=== PATIENT | female | born 1960 | race Caucasian/White ===

== ENCOUNTER → 2018-02-11 15:00 | Outpatient (CLI) | payer OTHER, SELFPAY | DX: Z23 Encounter for immunization (principal) | CPT/HCPCS: 90471; 90686 ==

== ENCOUNTER 2018-05-05 06:00 | Outpatient (RCR) | payer OTHER, SELFPAY ==
--- NOTE | 2018-04-25 11:27 | PT.OIE ---
Current Diagnoses Chronic pain syndrome (04/22/18) Unilateral primary osteoarthritis, left knee (04/22/18) Low back pain (04/22/18) Past Surgical History Status post hysterectomy with oophorectomy Provider Visit Care Team Role Provider Type Lidia Dominguez PA-C Attending Provider Advanced Protocol Manager Primary Care Provider Specialty: Internal Medicine Address: [address] [place] [address], [facility] Email: Physical Therapy Initial Evaluation PT-OP-A Visit Information Start: 04/22/18 08:15 Freq: Status: Active Protocol: Document 04/22/18 08:15 SAK (Rec: 04/22/18 16:58 SAK [id number]) Out-Patient Physical Therapy Visit Information Visit Information Visit Type Initial Evaluation Visit Start Time 08:15 Visit Stop Time 09:10 Total Visit Minutes 55 Visit Number 1 Number of CUSTOMER CARE MANAGER Visits 0 Evaluation Information Evaluation Date 04/22/18 PT-OP-B Current Condition Start: 04/22/18 08:15 Freq: Status: Active Protocol: Document 04/22/18 08:15 SAK (Rec: 04/25/18 11:26 [facility] [id number]) Current Condition History of Current Condition Onset Date September 2017 Current Complaints severe left knee pain History of Current Condition Reports she went hiking with family on [place] in September, doesn't remember any injury, but had onset of pain and swelling the next day. Icing, medications, injection not helpful. Had MRI March 2018 which showed likely medial meniscus toot tear, and edema left femoral condyle consistent with subchondral stress fracture. 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 Patient currently using single crutch on left, trying to ice and rest her leg as able, but has seen no improvement. Now referred for physical therapy including aquatic PT. Patient has a history of fibromyalgia, LBP, arthritis, depression, HESS, hysterectomy. Treatment Goals Patient/Caregiver Goals Minimize pain and return to active lifestyle, be able to work without pain. 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 Therapy/Recovery PT-OP-C Subjective Start: 04/22/18 08:15 Freq: Status: Active Protocol: Document 04/22/18 08:15 [facility] (Rec: 04/25/18 11:26 [facility] [id number]) Patient Questionnaires Lower Extremity Functional Scale LEFS Score 58 LEFS Impairment 40 to 59% Impaired (Score 32- 47) OP-PT Pain Assessment Pain Assessment Grid Paper Pain Assessment Grid Completed Yes Location left knee Pain Location Details medial Intensity 8 Scale Used Numeric (1 - 10) Description Aching Burning Pressure Sharp Tender Tightness Description- Other worst with weight-bearing Frequency Frequent Pain Aggravating Factors Activity Exercise Standing Walking Bending Pain Alleviating Factors Cold Lying Supine Home Pain Medication Use Pain Medications Used Yes Pain Behaviors Pain Behaviors Facial Grimacing Wincing PT-OP-E Functional Tests Start: 04/22/18 08:15 Freq: Status: Active Protocol: Document 04/22/18 08:15 [facility] (Rec: 04/25/18 11:26 [facility] [id number]) Functional Tests Five Times Sit to Stand Test Score unable Comments painful Squat Test Score unable PT-OP-F Manual Assessment Start: 04/22/18 08:15 Freq: Status: Active Protocol: Document 04/22/18 08:15 [facility] (Rec: 04/25/18 11:26 [facility] [id number]) Manual Assessments Joint Mobility Assessment Joint Mobility Assessment Unable to perform joint mobilizations due to high pain level PT-OP-G Mobility & Gait Start: 04/22/18 08:15 Freq: Status: Active Protocol: Document 04/22/18 08:15 [facility] (Rec: 04/25/18 11:26 [facility] [id number]) OP Mobility Evaluation Functional Movements Squats unable; painful Other Functional Movements sit to stand painful with minimal weight on left LE OP Gait Assessment Gait Gait Assistance Required: Independent Assistive Devices Assistive Device Axillary Crutches Orthotic/Prosthetic Devices or Brace: No Gait Deviations General Gait Pattern Antalgic Factors Limiting Gait Function Factors Limiting Gait Function Pain Comments Gait Comments Poor fit of crutch, doesn't provide adequate off-loading of left LE for gait. Stair Climbing Evaluation Comments Stair Climbing Comments Not done today due to severity of pain; patient reports step -to pattern PT-OP-H Neuro Start: 04/22/18 08:15 Freq: Status: Active Protocol: Document 04/22/18 08:15 [facility] (Rec: 04/25/18 11:26 [facility] [id number]) Sensation Evaluation Gross Sensation Gross Sensation WNL Comments Summary Comments denies N/T PT-OP-J Posture/Palpation/Skin Start: 04/22/18 08:15 Freq: Status: Active Protocol: Document 04/22/18 08:15 [facility] (Rec: 04/25/18 11:26 [facility] [id number]) Palpation Assessment Location medial left knee Palpation Findings Edema Tenderness PT-OP-K Range of Motion Start: 04/22/18 08:15 Freq: Status: Active Protocol: Document 04/22/18 08:15 [facility] (Rec: 04/25/18 11:26 [facility] [id number]) Hip Goniometric Range of Motion Hip ROM Limitations Comments WFL mary Knee Goniometric Range of Motion Knee Measured in Degrees Left Flexion Active (degrees) 100 Extension Active (degrees) 0 Right Knee ROM WFL Yes Knee ROM Limitations Knee ROM Limitations Pain Swelling Ankle and Foot Goniometric Range of Motion Ankle and Foot ROM Limitations Comments WFL mary PT-OP-M Strength Start: 04/22/18 08:15 Freq: Status: Active Protocol: Document 04/22/18 08:15 [facility] (Rec: 04/25/18 11:26 [facility] [id number]) Knee Strength Knee Manual Muscle Testing Left Flexion (S2) 4- Good- Extension (L3) 4- Good- Reason Not Measured Pain Right Flexion (S2) 5 Normal Extension (L3) 5 Normal Ankle/Foot Strength Ankle and Foot Manual Muscle Testing Left Dorsiflexion (L4) 4+ Good+ Plantarflexion (S1) 4+ Good+ Right Dorsiflexion (L4) 4+ Good+ Plantarflexion (S1) 4+ Good+ PT-OP-Q Treatments Start: 04/22/18 08:15 Freq: Status: Active Protocol: Document 04/22/18 08:15 [facility] (Rec: 04/22/18 16:58 [facility] [id number]) Gait Training Gait Activity Gait with FWW Device Used FWW Level of Assistance verbal cues Surface level Distance/Duration 60' Treatment Focus decreased weight-bearing and pain left knee with use of walker vs crutch Comments Patient encouraged to use FWW instead of crutch for better off-loading and decreased pain of her left knee. Manual Therapy Treatment Taping left knee Body Location medial left knee Treatment Focus edema reduction Type of Tape Kinesio Tape Skin Inspection intact Comments for edema reduction-2 fan strips Self-Care/Home Management Treatment Education Patient Education Pain Management PT-OP-R Modalities Start: 04/22/18 08:15 Freq: Status: Active Protocol: Document 04/22/18 08:15 [facility] (Rec: 04/25/18 10:55 [facility] [id number]) Electric Stimulation Electric Stimulation left knee Duration (Minutes) 15 Target/Sweep Sweep Patient Position Hooklying Combined With Heat/Cold Cold Pack Ultrasound Therapy Treatment left medial knee Treatment Duration (minutes) 8 Patient Position Hooklying Coupling Medium Ultrasound Gel Frequency Setting (mHz) 1 Duty Cycle 50% Intensity Setting (w/cm2) 1.2 PT-OP-T Assessment and Plan Start: 04/22/18 08:15 Freq: Status: Active Protocol: Document 04/22/18 08:15 [facility] (Rec: 04/25/18 11:26 [facility] [id number]) Physical Therapy Assessment Rehab Potential Rehabilitation Potential Good Evaluation Complexity Number of Personal Factors/Comorbidities 1-2 Number of Body Systems Impaired 3 Clinical Presentation at Evaluation Evolving Impairments Impairments Activity Tolerance Gait Pain Strength Goals weakness Impairment left knee weakness Short Term Goal (STG) Patient will be able to tolerate a gentle HEP for purposes of left knee strengthening STG Duration 6 wks Long-Term Goal (LTG) Patient will have 5/5 strength in her left knee activity tolerance Impairment pain with ADL's, work Short Term Goal (STG) Patient will be able to perform all ADL's without pain STG Duration 6 wks Long-Term Goal (LTG) Patient will be able to complete a full day's work without an increase in pain LTG Duration 3 months Gait Impairment antalgic gait Short Term Goal (STG) Patient able to ambulate with appropriate assistive device without a limp on level surfaces STG Duration 6 wks Principal Gifts Officer Goal (LTG) Patient able to ambulate without assistive device without a limp on all surfaces LTG Duration 3 months Pain Impairment function-limiting left knee pain Short Term Goal (STG) Decrease pain to no greater than 4/10 STG Duration 6 wks Long-Term Goal (LTG) Decrease pain to no greater than 1/10 LTG Duration 3 months Assessment Summary Assessment Patient presents with function -limiting left knee pain with MRI results showing femoral condyle edema indicative of possible subchondral stress fracture, and possible medial meniscus root tear. Feel she would benefit highly from PT for pain management, gait training, and strengthening to help her return to her previously very active lifestyle. She is currently ambulating with a single crutch which is not adequate for offloading her knee as she is limping significantly. Feel she will benefit highly from aquatic PT for bouyancy- supported exercise and gait training as well as land-based PT for modalities, taping, possibly fitting with knee brace, and gentle ther ex. Physical Therapy Plan Frequency and Duration Frequency of Treatment 2x/Week Duration of Treatment 3 months Plan of Care Start Date 04/22/18 Plan of Care End Date 07/21/18 Therapeutic Interventions Therapeutic Interventions Aquatic Therapy Gait Training Home Exercise Program Manual Therapy Neuromuscular Re-education Patient/Caregiver Education Self-Care/Home Management Taping Therapeutic Activities Therapeutic Exercises Modalities Cold Pack/Ice Massage Electric Stimulation Iontophoresis Ultrasound Next Visit Focus/Plan Next Note Type Treatment Note Next Visit Plan Initiate aquatic therapy. Instruct in gentle ther ex for HEP.
--- NOTE | 2018-04-25 11:27 | PT.OPPOC ---
Current Diagnoses Chronic pain syndrome (04/22/18) Unilateral primary osteoarthritis, left knee (04/22/18) Low back pain (04/22/18) Provider Visit Care Team Role Provider Type Lidia Dominguez PA-C Attending Provider Advanced Tree Puller Primary Care Provider Specialty: Internal Medicine Address: [address] [place] [address], [id number] Email: Plan Of Care PT-OP-T Assessment and Plan Start: 04/22/18 08:15 Freq: Status: Active Protocol: Document 04/22/18 08:15 SAK (Rec: 04/25/18 11:26 SAK [id number]) Physical Therapy Assessment Rehab Potential Rehabilitation Potential Good Evaluation Complexity Number of Personal Factors/Comorbidities 1-2 Number of Body Systems Impaired 3 Clinical Presentation at Evaluation Evolving Impairments Impairments Activity Tolerance Gait Pain Strength Goals weakness Impairment left knee weakness Short Term Goal (STG) Patient will be able to tolerate a gentle HEP for purposes of left knee strengthening STG Duration 6 wks Placement Director Goal (LTG) Patient will have 5/5 strength in her left knee activity tolerance Impairment pain with ADL's, work Short Term Goal (STG) Patient will be able to perform all ADL's without pain STG Duration 6 wks Penitentiary Goal (LTG) Patient will be able to complete a full day's work without an increase in pain LTG Duration 3 months Gait Impairment antalgic gait Short Term Goal (STG) Patient able to ambulate with appropriate assistive device without a limp on level surfaces STG Duration 6 wks Placement Director Goal (LTG) Patient able to ambulate without assistive device without a limp on all surfaces LTG Duration 3 months Pain Impairment function-limiting left knee pain Short Term Goal (STG) Decrease pain to no greater than 4/10 STG Duration 6 wks Placement Director Goal (LTG) Decrease pain to no greater than 1/10 LTG Duration 3 months Assessment Summary Assessment Patient presents with function -limiting left knee pain with MRI results showing femoral condyle edema indicative of possible subchondral stress fracture, and possible medial meniscus root tear. Feel she would benefit highly from PT for pain management, gait training, and strengthening to help her return to her previously very active lifestyle. She is currently ambulating with a single crutch which is not adequate for offloading her knee as she is limping significantly. Feel she will benefit highly from aquatic PT for bouyancy- supported exercise and gait training as well as land-based PT for modalities, taping, possibly fitting with knee brace, and gentle ther ex. Physical Therapy Plan Frequency and Duration Frequency of Treatment 2x/Week Duration of Treatment 3 months Plan of Care Start Date 04/22/18 Plan of Care End Date 07/21/18 Therapeutic Interventions Therapeutic Interventions Aquatic Therapy Gait Training Home Exercise Program Manual Therapy Neuromuscular Re-education Patient/Caregiver Education Self-Care/Home Management Taping Therapeutic Activities Therapeutic Exercises Modalities Cold Pack/Ice Massage Electric Stimulation Iontophoresis Ultrasound Next Visit Focus/Plan Next Note Type Treatment Note Next Visit Plan Initiate aquatic therapy. Instruct in gentle ther ex for HEP. Plan of Care Dates Plan of Care Start Date 04/22/18 Plan of Care End Date 07/21/18 Please Sign and Return: I have reviewed this Plan of Care and certify that the skilled therapy services above are required to meet the patient?s needs. Physician Signature Date Printed Name and Credentials Clinical Instructor Signature Printed Name and Credentials
--- NOTE | 2018-04-28 16:18 | PT.OTN ---
Current Diagnoses Chronic pain syndrome (04/28/18) Unilateral primary osteoarthritis, left knee (04/28/18) Low back pain (04/28/18) Physical Therapy Treatment Note PT-OP-A Visit Information Start: 04/22/18 08:15 Freq: Status: Active Protocol: Document 04/28/18 06:12 SAK (Rec: 04/28/18 15:14 [facility] [id number]) Out-Patient Physical Therapy Visit Information Visit Information Visit Type Treatment Note Visit Start Time 06:00 Visit Stop Time 06:45 Total Visit Minutes 45 Visit Number 2 Number of INCIDENT RESPONSE CONSULTANT Visits 0 Evaluation Information Evaluation Date 04/22/18 PT-OP-B Current Condition Start: 04/22/18 08:15 Freq: Status: Active Protocol: Document 04/22/18 08:15 SAK (Rec: 04/25/18 11:26 [facility] [id number]) Current Condition History of Current Condition Onset Date September 2017 Current Complaints severe left knee pain History of Current Condition Reports she went hiking with family on [place] in September, doesn't remember any injury, but had onset of pain and swelling the next day. Icing, medications, injection not helpful. Had MRI March 2018 which showed likely medial meniscus toot tear, and edema left femoral condyle consistent with subchondral stress fracture. 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 Patient currently using single crutch on left, trying to ice and rest her leg as able, but has seen no improvement. Now referred for physical therapy including aquatic PT. Patient has a history of fibromyalgia, LBP, arthritis, depression, HESS, hysterectomy. Treatment Goals Patient/Caregiver Goals Minimize pain and return to active lifestyle, be able to work without pain. 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 Therapy/Recovery PT-OP-C Subjective Start: 04/22/18 08:15 Freq: Status: Active Protocol: Document 04/28/18 06:12 SAK (Rec: 04/28/18 15:14 [facility] [id number]) OP-PT Subjective Patient Comments Patient Comments Reports she felt better after ultrasound. Liked kinesiotape . Hasn't yet received order for knee brace from physician. Reports excited to try aquatic therapy. PT-OP-E Functional Tests Start: 04/22/18 08:15 Freq: Status: Active Protocol: Document 04/22/18 08:15 SAK (Rec: 04/25/18 11:26 [facility] [id number]) Functional Tests Five Times Sit to Stand Test Score unable Comments painful Squat Test Score unable PT-OP-F Manual Assessment Start: 04/22/18 08:15 Freq: Status: Active Protocol: Document 04/22/18 08:15 SAK (Rec: 04/25/18 11:26 [facility] [id number]) Manual Assessments Joint Mobility Assessment Joint Mobility Assessment Unable to perform joint mobilizations due to high pain level PT-OP-G Mobility & Gait Start: 04/22/18 08:15 Freq: Status: Active Protocol: Document 04/22/18 08:15 SAK (Rec: 04/25/18 11:26 [facility] [id number]) OP Mobility Evaluation Functional Movements Squats unable; painful Other Functional Movements sit to stand painful with minimal weight on left LE OP Gait Assessment Gait Gait Assistance Required: Independent Assistive Devices Assistive Device Axillary Crutches Orthotic/Prosthetic Devices or Brace: No Gait Deviations General Gait Pattern Antalgic Factors Limiting Gait Function Factors Limiting Gait Function Pain Comments Gait Comments Poor fit of crutch, doesn't provide adequate off-loading of left LE for gait. Stair Climbing Evaluation Comments Stair Climbing Comments Not done today due to severity of pain; patient reports step -to pattern PT-OP-H Neuro Start: 04/22/18 08:15 Freq: Status: Active Protocol: Document 04/22/18 08:15 SAK (Rec: 04/25/18 11:26 [facility] [id number]) Sensation Evaluation Gross Sensation Gross Sensation WNL Comments Summary Comments denies N/T PT-OP-J Posture/Palpation/Skin Start: 04/22/18 08:15 Freq: Status: Active Protocol: Document 04/22/18 08:15 SAK (Rec: 04/25/18 11:26 [facility] [id number]) Palpation Assessment Location medial left knee Palpation Findings Edema Tenderness PT-OP-K Range of Motion Start: 04/22/18 08:15 Freq: Status: Active Protocol: Document 04/22/18 08:15 [facility] (Rec: 04/25/18 11:26 [facility] [id number]) Hip Goniometric Range of Motion Hip ROM Limitations Comments WFL mary Knee Goniometric Range of Motion Knee Measured in Degrees Left Flexion Active (degrees) 100 Extension Active (degrees) 0 Right Knee ROM WFL Yes Knee ROM Limitations Knee ROM Limitations Pain Swelling Ankle and Foot Goniometric Range of Motion Ankle and Foot ROM Limitations Comments WFL mary PT-OP-M Strength Start: 04/22/18 08:15 Freq: Status: Active Protocol: Document 04/22/18 08:15 SAK (Rec: 04/25/18 11:26 [facility] [id number]) Knee Strength Knee Manual Muscle Testing Left Flexion (S2) 4- Good- Extension (L3) 4- Good- Reason Not Measured Pain Right Flexion (S2) 5 Normal Extension (L3) 5 Normal Ankle/Foot Strength Ankle and Foot Manual Muscle Testing Left Dorsiflexion (L4) 4+ Good+ Plantarflexion (S1) 4+ Good+ Right Dorsiflexion (L4) 4+ Good+ Plantarflexion (S1) 4+ Good+ PT-OP-Q Treatments Start: 04/22/18 08:15 Freq: Status: Active Protocol: Document 04/22/18 08:15 [facility] (Rec: 04/22/18 16:58 [facility] [id number]) Gait Training Gait Activity Gait with FWW Device Used FWW Level of Assistance verbal cues Surface level Distance/Duration 60' Treatment Focus decreased weight-bearing and pain left knee with use of walker vs crutch Comments Patient encouraged to use FWW instead of crutch for better off-loading and decreased pain of her left knee. Manual Therapy Treatment Taping left knee Body Location medial left knee Treatment Focus edema reduction Type of Tape Kinesio Tape Skin Inspection intact Comments for edema reduction-2 fan strips Self-Care/Home Management Treatment Education Patient Education Pain Management PT-OP-R Modalities Start: 04/22/18 08:15 Freq: Status: Active Protocol: Document 04/22/18 08:15 [facility] (Rec: 04/25/18 10:55 [facility] [id number]) Electric Stimulation Electric Stimulation left knee Duration (Minutes) 15 Target/Sweep Sweep Patient Position Hooklying Combined With Heat/Cold Cold Pack Ultrasound Therapy Treatment left medial knee Treatment Duration (minutes) 8 Patient Position Hooklying Coupling Medium Ultrasound Gel Frequency Setting (mHz) 1 Duty Cycle 50% Intensity Setting (w/cm2) 1.2 PT-OP-S Aquatic Treatment Start: 04/22/18 08:15 Freq: Status: Active Protocol: Document 04/28/18 06:00 [facility] (Rec: 04/28/18 16:18 [facility] [id number]) Aquatics Treatment Pool Entry/Exit Pool Entry/Exit Method Stairs Assistance Standby Assistance Verbal Cues Water Walking fwd,bck, , july Water Level Chest Level Level of Assistance Standby Assistance Verbal Cues Lower Extremity Exercises hip flex/ext Body Position Standing Water Level Chest Level Reps/Duration 10x hip ab/ad Body Position Standing Water Level Chest Level Reps/Duration 10x knee flex/ext Body Position Standing Water Level Chest Level Reps/Duration 10x squats Body Position Standing Water Level Chest Level Reps/Duration 10x heel raises Body Position Standing Water Level Chest Level Reps/Duration 10x Lower Extremity Stretches HS Body Position Standing Water Level Chest Level Equipment Small Noodle [place] Activities [place] Activities Bicycle [place] Running Equipment small noodle Duration 12 min Comments also deep water hang for joint decompression: 1'x 2 PT-OP-T Assessment and Plan Start: 04/22/18 08:15 Freq: Status: Active Protocol: Document 04/28/18 06:02 [facility] (Rec: 04/28/18 16:07 [facility] [id number]) Physical Therapy Assessment Goals weakness Impairment left knee weakness Short Term Goal (STG) Patient will be able to tolerate a gentle HEP for purposes of left knee strengthening STG Duration 6 wks Lawn And Garden Technician Goal (LTG) Patient will have 5/5 strength in her left knee activity tolerance Impairment pain with ADL's, work Short Term Goal (STG) Patient will be able to perform all ADL's without pain STG Duration 6 wks Lawn And Garden Technician Goal (LTG) Patient will be able to complete a full day's work without an increase in pain LTG Duration 3 months Gait Impairment antalgic gait Short Term Goal (STG) Patient able to ambulate with appropriate assistive device without a limp on level surfaces STG Duration 6 wks Long-Term Goal (LTG) Patient able to ambulate without assistive device without a limp on all surfaces LTG Duration 3 months Pain Impairment function-limiting left knee pain Short Term Goal (STG) Decrease pain to no greater than 4/10 STG Duration 6 wks Long-Term Goal (LTG) Decrease pain to no greater than 1/10 LTG Duration 3 months Physical Therapy Plan Frequency and Duration Frequency of Treatment 2x/Week Duration of Treatment 3 months Plan of Care Start Date 04/22/18 Plan of Care End Date 07/21/18 Therapeutic Interventions Therapeutic Interventions Aquatic Therapy Gait Training Home Exercise Program Manual Therapy Neuromuscular Re-education Patient/Caregiver Education Self-Care/Home Management Taping Therapeutic Activities Therapeutic Exercises Modalities Cold Pack/Ice Massage Electric Stimulation Iontophoresis Ultrasound Next Visit Focus/Plan Next Note Type Treatment Note Next Visit Plan Continue combination land and aquatic PT. Fit with hinged knee brace, progress aquatic ex as tolerated, land-based PT for modalities, manual therapy, and gentle ther ex as tolerated.
--- NOTE | 2018-05-05 10:24 | PT.OTN ---
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 in September, doesn't remember any injury, but had onset of pain and swelling the next day. Icing, medications, injection not helpful. Had MRI March 2018 which showed likely medial meniscus toot tear, and edema left femoral condyle consistent with subchondral stress fracture. 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 Patient currently using single crutch on left, trying to ice and rest her leg as able, but has seen no improvement. Now referred for physical therapy including aquatic PT. Patient has a history of fibromyalgia, LBP, arthritis, depression, HESS, hysterectomy. Treatment Goals Patient/Caregiver Goals Minimize pain and return to active lifestyle, be able to work without pain. 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 Therapy/Recovery PT-OP-C Subjective Start: 04/22/18 08:15 Freq: Status: Active Protocol: Document 05/05/18 06:00 SAK (Rec: 05/05/18 10:24 [facility] [id number]) OP-PT Subjective Patient Comments Patient Comments Reports initially a little sore after aquatic PT appointment, then has had significant decrease in pain; states walking with minimal limp not using crutch. Very pleased. Has not been able to get into the pool on her own yet due to busy work schedule PT-OP-E Functional Tests Start: 04/22/18 08:15 Freq: Status: Active Protocol: Document 04/22/18 08:15 [facility] (Rec: 04/25/18 11:26 [facility] [id number]) Functional Tests Five Times Sit to Stand Test Score unable Comments painful Squat Test Score unable PT-OP-F Manual Assessment Start: 04/22/18 08:15 Freq: Status: Active Protocol: Document 04/22/18 08:15 [facility] (Rec: 04/25/18 11:26 [facility] [id number]) Manual Assessments Joint Mobility Assessment Joint Mobility Assessment Unable to perform joint mobilizations due to high pain level PT-OP-G Mobility & Gait Start: 04/22/18 08:15 Freq: Status: Active Protocol: Document 04/22/18 08:15 [facility] (Rec: 04/25/18 11:26 [facility] [id number]) OP Mobility Evaluation Functional Movements Squats unable; painful Other Functional Movements sit to stand painful with minimal weight on left LE OP Gait Assessment Gait Gait Assistance Required: Independent Assistive Devices Assistive Device Axillary Crutches Orthotic/Prosthetic Devices or Brace: No Gait Deviations General Gait Pattern Antalgic Factors Limiting Gait Function Factors Limiting Gait Function Pain Comments Gait Comments Poor fit of crutch, doesn't provide adequate off-loading of left LE for gait. Stair Climbing Evaluation Comments Stair Climbing Comments Not done today due to severity of pain; patient reports step -to pattern PT-OP-H Neuro Start: 04/22/18 08:15 Freq: Status: Active Protocol: Document 04/22/18 08:15 [facility] (Rec: 04/25/18 11:26 [facility] [id number]) Sensation Evaluation Gross Sensation Gross Sensation WNL Comments Summary Comments denies N/T PT-OP-J Posture/Palpation/Skin Start: 04/22/18 08:15 Freq: Status: Active Protocol: Document 04/22/18 08:15 [facility] (Rec: 04/25/18 11:26 [facility] [id number]) Palpation Assessment Location medial left knee Palpation Findings Edema Tenderness PT-OP-K Range of Motion Start: 04/22/18 08:15 Freq: Status: Active Protocol: Document 04/22/18 08:15 [facility] (Rec: 04/25/18 11:26 [facility] [id number]) Hip Goniometric Range of Motion Hip ROM Limitations Comments WFL mary Knee Goniometric Range of Motion Knee Measured in Degrees Left Flexion Active (degrees) 100 Extension Active (degrees) 0 Right Knee ROM WFL Yes Knee ROM Limitations Knee ROM Limitations Pain Swelling Ankle and Foot Goniometric Range of Motion Ankle and Foot ROM Limitations Comments WFL mary PT-OP-M Strength Start: 04/22/18 08:15 Freq: Status: Active Protocol: Document 04/22/18 08:15 [facility] (Rec: 04/25/18 11:26 [facility] [id number]) Knee Strength Knee Manual Muscle Testing Left Flexion (S2) 4- Good- Extension (L3) 4- Good- Reason Not Measured Pain Right Flexion (S2) 5 Normal Extension (L3) 5 Normal Ankle/Foot Strength Ankle and Foot Manual Muscle Testing Left Dorsiflexion (L4) 4+ Good+ Plantarflexion (S1) 4+ Good+ Right Dorsiflexion (L4) 4+ Good+ Plantarflexion (S1) 4+ Good+ PT-OP-Q Treatments Start: 04/22/18 08:15 Freq: Status: Active Protocol: Document 04/22/18 08:15 [facility] (Rec: 04/22/18 16:58 [facility] [id number]) Gait Training Gait Activity Gait with FWW Device Used FWW Level of Assistance verbal cues Surface level Distance/Duration 60' Treatment Focus decreased weight-bearing and pain left knee with use of walker vs crutch Comments Patient encouraged to use FWW instead of crutch for better off-loading and decreased pain of her left knee. Manual Therapy Treatment Taping left knee Body Location medial left knee Treatment Focus edema reduction Type of Tape Kinesio Tape Skin Inspection intact Comments for edema reduction-2 fan strips Self-Care/Home Management Treatment Education Patient Education Pain Management PT-OP-R Modalities Start: 04/22/18 08:15 Freq: Status: Active Protocol: Document 04/22/18 08:15 [facility] (Rec: 04/25/18 10:55 [facility] [id number]) Electric Stimulation Electric Stimulation left knee Duration (Minutes) 15 Target/Sweep Sweep Patient Position Hooklying Combined With Heat/Cold Cold Pack Ultrasound Therapy Treatment left medial knee Treatment Duration (minutes) 8 Patient Position Hooklying Coupling Medium Ultrasound Gel Frequency Setting (mHz) 1 Duty Cycle 50% Intensity Setting (w/cm2) 1.2 PT-OP-S Aquatic Treatment Start: 04/22/18 08:15 Freq: Status: Active Protocol: Document 05/05/18 06:00 [facility] (Rec: 05/05/18 10:24 [facility] [id number]) Aquatics Treatment Pool Entry/Exit Pool Entry/Exit Method Stairs Assistance Standby Assistance Verbal Cues Water Walking [place] July Water Level Chest Level Level of Assistance Standby Assistance Verbal Cues fwd,bck, side, july Water Level Chest Level Level of Assistance Standby Assistance Verbal Cues Lower Extremity Exercises step-ups Body Position Standing Water Level Chest Level Reps/Duration 10x hip flex/ext Body Position Standing Water Level Chest Level Reps/Duration 10x hip ab/ad Body Position Standing Water Level Chest Level Reps/Duration 10x knee flex/ext Body Position Standing Water Level Chest Level Reps/Duration 10x squats Body Position Standing Water Level Chest Level Reps/Duration 10x heel raises Body Position Standing Water Level Chest Level Reps/Duration 10x Lower Extremity Stretches HC Body Position Standing Water Level Chest Level Comments Pool wall HS Body Position Standing Water Level Chest Level Equipment Small Noodle [place] Activities [place] Activities Bicycle [place] Running Equipment small noodle Duration 12 min Comments also deep water hang for joint decompression: 1'x 2 PT-OP-T Assessment and Plan Start: 04/22/18 08:15 Freq: Status: Active Protocol: Document 05/05/18 06:00 [facility] (Rec: 05/05/18 10:24 [facility] [id number]) Physical Therapy Assessment Goals weakness Impairment left knee weakness Short Term Goal (STG) Patient will be able to tolerate a gentle HEP for purposes of left knee strengthening STG Duration 6 wks Retirement Goal (LTG) Patient will have 5/5 strength in her left knee activity tolerance Impairment pain with ADL's, work Short Term Goal (STG) Patient will be able to perform all ADL's without pain STG Duration 6 wks Retirement Goal (LTG) Patient will be able to complete a full day's work without an increase in pain LTG Duration 3 months Gait Impairment antalgic gait Short Term Goal (STG) Patient able to ambulate with appropriate assistive device without a limp on level surfaces STG Duration 6 wks Retirement Goal (LTG) Patient able to ambulate without assistive device without a limp on all surfaces LTG Duration 3 months Pain Impairment function-limiting left knee pain Short Term Goal (STG) Decrease pain to no greater than 4/10 STG Duration 6 wks Rn Radiation Goal (LTG) Decrease pain to no greater than 1/10 LTG Duration 3 months Assessment Summary Assessment Reported some pinching sensation in her knee toward end of session today. Encouraged icing and remember her response to aquatic PT last session. Physical Therapy Plan Frequency and Duration Frequency of Treatment 2x/Week Duration of Treatment 3 months Plan of Care Start Date 04/22/18 Plan of Care End Date 07/21/18 Therapeutic Interventions Therapeutic Interventions Aquatic Therapy Gait Training Home Exercise Program Manual Therapy Neuromuscular Re-education Patient/Caregiver Education Self-Care/Home Management Taping Therapeutic Activities Therapeutic Exercises Modalities Cold Pack/Ice Massage Electric Stimulation Iontophoresis Ultrasound Next Visit Focus/Plan Next Note Type Treatment Note Next Visit Plan Continue combination land and aquatic PT per POC to decrease pain and return patient to her prior level of function
--- NOTE | 2018-06-18 08:43 | PT.OPDS ---
Current Diagnoses Chronic pain syndrome (05/05/18) Unilateral primary osteoarthritis, left knee (05/05/18) Low back pain (05/05/18) Provider Visit Care Team Role Provider Type Lidia Dominguez PA-C Attending Provider Advanced Client Resolution Specialist Primary Care Provider Specialty: Internal Medicine Address: [address] [place] [address], [phone] Email: Visit Number Visit Number 3 Discharge Summary PT-OP-B Current Condition Start: 04/22/18 08:15 Freq: Status: Active Protocol: Document 04/22/18 08:15 SAK (Rec: 04/25/18 11:26 SAK [id number]) Current Condition History of Current Condition Onset Date September 2017 Current Complaints severe left knee pain History of Current Condition Reports she [place], doesn't remember any injury, but had onset of pain and swelling the next day. Icing, medications, injection not helpful. Had MRI March 2018 which showed likely medial meniscus toot tear, and edema left femoral condyle consistent with subchondral stress fracture. 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 Patient currently using single crutch on left, trying to ice and rest her leg as able, but has seen no improvement. Now referred for physical therapy including aquatic PT. Patient has a history of fibromyalgia, LBP, arthritis, depression, HESS, hysterectomy. Treatment Goals Patient/Caregiver Goals Minimize pain and return to active lifestyle, be able to work without pain. 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 Therapy/Recovery PT-OP-C Subjective Start: 04/22/18 08:15 Freq: Status: Active Protocol: Document 05/05/18 06:00 SAK (Rec: 05/05/18 10:24 SAK [id number]) OP-PT Subjective Patient Comments Patient Comments Reports initially a little sore after aquatic PT appointment, then has had significant decrease in pain; states walking with minimal limp not using crutch. Very pleased. Has not been able to get into the pool on her own yet due to busy work schedule PT-OP-E Functional Tests Start: 04/22/18 08:15 Freq: Status: Active Protocol: Document 04/22/18 08:15 SAK (Rec: 04/25/18 11:26 [facility] [id number]) Functional Tests Five Times Sit to Stand Test Score unable Comments painful Squat Test Score unable PT-OP-F Manual Assessment Start: 04/22/18 08:15 Freq: Status: Active Protocol: Document 04/22/18 08:15 SAK (Rec: 04/25/18 11:26 [facility] [id number]) Manual Assessments Joint Mobility Assessment Joint Mobility Assessment Unable to perform joint mobilizations due to high pain level PT-OP-G Mobility & Gait Start: 04/22/18 08:15 Freq: Status: Active Protocol: Document 04/22/18 08:15 SAK (Rec: 04/25/18 11:26 [facility] [id number]) OP Mobility Evaluation Functional Movements Squats unable; painful Other Functional Movements sit to stand painful with minimal weight on left LE OP Gait Assessment Gait Gait Assistance Required: Independent Assistive Devices Assistive Device Axillary Crutches Orthotic/Prosthetic Devices or Brace: No Gait Deviations General Gait Pattern Antalgic Factors Limiting Gait Function Factors Limiting Gait Function Pain Comments Gait Comments Poor fit of crutch, doesn't provide adequate off-loading of left LE for gait. Stair Climbing Evaluation Comments Stair Climbing Comments Not done today due to severity of pain; patient reports step -to pattern PT-OP-H Neuro Start: 04/22/18 08:15 Freq: Status: Active Protocol: Document 04/22/18 08:15 SAK (Rec: 04/25/18 11:26 [facility] [id number]) Sensation Evaluation Gross Sensation Gross Sensation WNL Comments Summary Comments denies N/T PT-OP-J Posture/Palpation/Skin Start: 04/22/18 08:15 Freq: Status: Active Protocol: Document 04/22/18 08:15 SAK (Rec: 04/25/18 11:26 [facility] [id number]) Palpation Assessment Location medial left knee Palpation Findings Edema Tenderness PT-OP-K Range of Motion Start: 04/22/18 08:15 Freq: Status: Active Protocol: Document 04/22/18 08:15 [facility] (Rec: 04/25/18 11:26 [facility] [id number]) Hip Goniometric Range of Motion Hip ROM Limitations Comments WFL mary Knee Goniometric Range of Motion Knee Measured in Degrees Left Flexion Active (degrees) 100 Extension Active (degrees) 0 Right Knee ROM WFL Yes Knee ROM Limitations Knee ROM Limitations Pain Swelling Ankle and Foot Goniometric Range of Motion Ankle and Foot ROM Limitations Comments WFL mary PT-OP-M Strength Start: 04/22/18 08:15 Freq: Status: Active Protocol: Document 04/22/18 08:15 [facility] (Rec: 04/25/18 11:26 [facility] [id number]) Knee Strength Knee Manual Muscle Testing Left Flexion (S2) 4- Good- Extension (L3) 4- Good- Reason Not Measured Pain Right Flexion (S2) 5 Normal Extension (L3) 5 Normal Ankle/Foot Strength Ankle and Foot Manual Muscle Testing Left Dorsiflexion (L4) 4+ Good+ Plantarflexion (S1) 4+ Good+ Right Dorsiflexion (L4) 4+ Good+ Plantarflexion (S1) 4+ Good+ PT-OP-T Assessment and Plan Start: 04/22/18 08:15 Freq: Status: Active Protocol: Document 06/18/18 08:40 [facility] (Rec: 06/18/18 08:43 [facility] [id number]) Physical Therapy Assessment Goals weakness Impairment left knee weakness Short Term Goal (STG) Patient will be able to tolerate a gentle HEP for purposes of left knee strengthening (achieved)L STG Duration 6 wks Acrobatic Dancer Goal (LTG) Patient will have 5/5 strength in her left knee (not achieved as patient not able to continue PT due to work demands) activity tolerance Impairment pain with ADL's, work Short Term Goal (STG) Patient will be able to perform all ADL's without pain (met) STG Duration 6 wks Acrobatic Dancer Goal (LTG) Patient will be able to complete a full day's work without an increase in pain ( mostly met; patient reports minimal pain) LTG Duration 3 months Gait Impairment antalgic gait Short Term Goal (STG) Patient able to ambulate with appropriate assistive device without a limp on level surfaces (mostly met) STG Duration 6 wks Intermediate Goal (LTG) Patient able to ambulate without assistive device without a limp on all surfaces (mostly met) LTG Duration 3 months Pain Impairment function-limiting left knee pain Short Term Goal (STG) Decrease pain to no greater than 4/10 (met) STG Duration 6 wks Intermediate Goal (LTG) Decrease pain to no greater than 1/10 (mostly met) LTG Duration 3 months Assessment Summary Assessment Patient attended 2 aquatic therapy sessions with excellent pain relief and functional improvement. Due to her demanding work schedule she has been unable to continue with PT but demonstrated good understanding of aquatic exercises and has been issued a written program for her to do when her schedule allows. She reports she is doing well. Physical Therapy Plan Discharge Physical Therapy Discharge Reasons Goals Met Discharge Comments Unable to attend further PT for strengthening, progression of ther ex, HEP, aquatic exercise.
== END 2018-07-07 12:54 ==
LOC: PHYS 06:00
PROVIDERS: PCP Physician Assistant; Visit Provider Physician Assistant
DX: G89.4 Chronic pain syndrome (principal); M17.12 Unilateral primary osteoarthritis, left knee; M54.5 Low back pain
CPT/HCPCS: 97014; 97035; 97113; 97162; G0283

== ENCOUNTER → 2019-02-17 10:52 | Outpatient (CLI) | payer OTHER, SELFPAY | PROVIDERS: PCP Physician Assistant | DX: Z23 Encounter for immunization (principal) | CPT/HCPCS: 90471; 90686 ==

== ENCOUNTER → 2019-11-24 13:39 | Outpatient (CLI) | payer OTHER, SELFPAY ==
[2019-11-26 09:02] LABS: COVID19 Sendout Not Detected (Not Detect)
== END ==
PROVIDERS: PCP Physician Assistant; Visit Provider Physician Assistant
DX: Z03.818 Encounter for observation for suspected exposure to other biological agents ruled out (principal)
CPT/HCPCS: 87635

== ENCOUNTER → 2020-02-16 | Outpatient (CLI) | payer OTHER, SELFPAY | PROVIDERS: PCP Physician Assistant; Referring Provider Internal Medicine; Visit Provider Internal Medicine | DX: Z23 Encounter for immunization (principal) | CPT/HCPCS: 90471; 90686 ==

== ENCOUNTER → 2020-03-27 11:27 | Outpatient (CLI) | payer OTHER, SELFPAY ==
[2020-03-27 12:04] LABS: COVID19 -Nasal RAPID Negative (Negative)
== END ==
PROVIDERS: PCP Physician Assistant; Visit Provider Physician Assistant
DX: Z11.59 Encounter for screening for other viral diseases (principal)
CPT/HCPCS: 87635

== ENCOUNTER → 2020-04-18 07:41 | Outpatient (CLI) | payer OTHER, SELFPAY ==
[2020-04-18 08:14] LABS: PTT Partial Thromboplastin Tim 38 SECONDS (26.4-36.2)
[2020-04-18 08:17] LABS: Hemoglobin A1C% w Est Avg Glu 5.8 % (4.0-6.0)
[2020-04-18 08:22] LABS: Add Manual Diff / Slide Review NO; Basophils Absolute Auto 0 /uL (0-100); Basophils Percent Auto 0.1 % (0-2); Eosinophils Absolute Auto 0 /uL (0-450); Eosinophils Percent Auto 0.1 % (2-4); Hematocrit 40.4 % (36-46); Hemoglobin 13.1 g/dL (12.0-16.0); Lymphocytes Absolute Auto 2100 /uL (1100-4500); Mean Corpuscular HGB Conc 32.4 % (30-36); Mean Corpuscular Hemoglobin 27.3 PG (26-34); Mean Corpuscular Volume 84.3 fL (80-100); Monocytes Absolute Auto 600 /uL (0-900); Monocytes Percent Auto 6.5 % (3-14); Neutrophils Absolute Auto 5900 /uL (1500-7000); Neutrophils Percent Auto 68.3 % (50-75); Platelet Count 355 X10^3/uL (150-400); Red Blood Cell Count 4.79 X10^6/uL (4.0-5.2); Red Cell Distribution Width 13.4 % (11.6-14.8); White Blood Cell Count 8.6 X10^3/uL (4.5-11.0)
[2020-04-18 08:59] LABS: Iron 48 ug/dL (37-170)
[2020-04-18 09:03] LABS: Alanine Aminotransferase 20 IU/L (<35); Albumin 4.1 g/dL (3.5-5.0); Albumin Globulin Ratio 1.3 (1.0-2.8); Alkaline Phosphatase 114 U/L (38-126); Aspartate Aminotransferase 20 IU/L (14-36); BUN Creatinine Ratio 25.4 (6-22); Bilirubin Total 0.3 mg/dL (0.2-1.3); Blood Urea Nitrogen 16 mg/dL (7-17); Carbon Dioxide 29 mmol/L (22-32); Chloride 103 mmol/L (98-107); Cholesterol 169 mg/dL (140-199); Estimated Glomerular Filt Rate > 60.0 mL/min (>60); Globulin 3.1 g/dL (1.7-4.1); Glucose 121 mg/dL (70-100); HDL Cholesterol 53 mg/dL (40-60); HEMOLYSIS < 15 (0-50); LDL Cholesterol Calculated 91 mg/dL (<100); Potassium 4.5 mmol/L (3.4-5.1); Sodium 138 mmol/L (137-145); Total Protein 7.2 g/dL (6.3-8.2); Triglycerides 127 mg/dL (35-150)
[2020-04-18 09:08] LABS: Total Iron Binding Capacity 337 ug/dL (265-497)
[2020-04-18 09:16] LABS: Free T3, Triiodothyronine Free 4.19 pg/mL (2.77-5.27)
[2020-04-18 10:07] LABS: Folate 7.1 ng/mL (2.76-20.0); Vitamin B12 434 pg/mL (239-931)
[2020-04-18 10:32] LABS: Ferritin 122 ng/mL (11-264)
== END ==
PROVIDERS: PCP Physician Assistant; Referring Provider Surgery; Visit Provider Surgery
DX: Z01.812 Encounter for preprocedural laboratory examination (principal); E46 Unspecified protein-calorie malnutrition; E55.9 Vitamin D deficiency, unspecified; E63.9 Nutritional deficiency, unspecified
CPT/HCPCS: 36415; 80053; 80061; 82306; 82607; 82728; 82746; 83036; 83540; 83550; 84425; 84443; 84481; 85025; 85610; 85730

== ENCOUNTER → 2020-05-17 11:12 | Outpatient (CLI) | payer OTHER, SELFPAY ==
[2020-05-17] MEDS: COVID-19 VACC(MODERNA-1)/PF 100 MCG/0.5 ML VIAL IM (11:20)
== END ==
PROVIDERS: PCP Physician Assistant; Visit Provider Internal Medicine
DX: Z23 Encounter for immunization (principal)
CPT/HCPCS: 0011A; 91301

== ENCOUNTER → 2020-06-13 10:22 | Outpatient (CLI) | payer OTHER, SELFPAY ==
[2020-06-13] MEDS: COVID-19 VACC #2, MRNA(MOD) 100 MCG/0.5 ML VIAL IM (10:27)
[2020-06-13] MEDS: diphenhydrAMINE 25 MG TABLET 50 MG PO (10:48)
== END ==
PROVIDERS: PCP Physician Assistant; Visit Provider Internal Medicine
DX: Z23 Encounter for immunization (principal)
CPT/HCPCS: 0012A; 91301

== ENCOUNTER 2020-06-13 11:01 | Emergency (ER) | payer OTHER, SELFPAY ==
[2020-06-13] VITALS (9 sets, daily range): BP systolic 132–158; BP diastolic 69–80; PULSE 100–113; RESP 11–30; TEMP 36.6; O2SAT 92–98; BMI 44.6
--- NOTE | 2020-06-13 11:07 | ED.ALLEREA ---
HPI - Allergic Reaction General Chief complaint: Allergic Reaction Stated complaint: Allergic Reaction Time Seen by Provider: 06/13/20 11:06 Source: patient Mode of arrival: Wheelchair Limitations: no limitations History of Present Illness HPI narrative: This is a 59-year-old female comes to the emergency department with reaction to the 2nd dose of moderna vaccine. Patient states she received the vaccine approximately 45-50 minutes ago. She was watched for about 30 minutes she states she is feeling a little hot and flushed and shaky. When she went to stand up to leave she felt sort of like she was riding on a wave. Patient states she continues to feel flushed. She has not had any pure itis. She denies any swelling of her lips, mouth oropharynx or elsewhere in her body. She denies any rash but states her skin does seem a little bit redder. She states no chest pain or pressure, she feels a little short of breath. No nausea or vomiting, no diarrhea or other changes. Patient takes medication for chronic back pain, IBS, fatty liver fibromyalgia. She states she had an allergic reaction as a child to penicillin but is unsure what it was. She has never had any prior vaccine reactions or other medication reactions. Related Data Home Medications Medication Instructions Recorded Confirmed gabapentin [Neurontin] 600 mg PO QHS #0 10/15/16 ibuprofen 200 mg PO PRN PRN #0 10/15/16 cholecalciferol (vitamin D3) 2 tab PO QDAY #0 05/22/17 [Vitamin D3] cyclobenzaprine 20 mg PO HS #0 05/22/17 Previous Rx's Medication Instructions Recorded lorazepam [Ativan] 1 mg PO BIDP PRN #60 tab 05/22/17 fluoxetine [Prozac] 40 mg PO QDAY #30 cap 06/12/17 azithromycin [Zithromax] 250 mg OR QDAY #6 tab 07/15/17 prednisone 20 mg PO BID #10 tab 07/15/17 epinephrine [EpiPen] 0.3 ml IM Q5-15M PRN #2 ea 06/13/20 famotidine [Pepcid] 40 mg PO DAILY #7 tab 06/13/20 prednisone 50 mg PO DAILY #5 tab 06/13/20 Allergies Allergy/AdvReac Type Severity Reaction Status Date / Time COVID-19 Virus Vaccines Allergy Severe Difficulty Verified 06/13/20 13:36 Breathing Penicillins [PENICILLINS] Allergy Unknown Verified 06/13/20 11:05 Patient History Surgical History Status post hysterectomy with oophorectomy Social History Smoking Status: Never smoker Smoking Status: Never smoker Substance Use Type: does not use Exam Narrative Exam Narrative: GEN: well nourished, well appearing female, alert and oriented x 3, patient appears to be in mild distress. HEENT: Atraumatic, pupils are equal round reactive to light, extraocular movements are intact, nares are clear, Throat is clear without any exudates, erythema, tonsillar enlargement or uvular deviation, no facial swelling. HEART: Tachycardic but regular rate and rhythm without murmur, clicks, rubs. LUNGS:Lungs clear to auscultation, no wheezes, rales, crackles, chest moves symmetrically, no tachypnea accessory muscle use. ABD:bowel sounds normal, soft, non-tender, no guarding, rebound, rigidity, no masses noted, no hepatosplenomegaly MSCL: Non-tender, full range of motion NEURO:CN 2-12 intact, sensation normal, patient appears tremulous. SKIN: Patient appears slightly flushed, she does have pale skin typically, no hives, raised lesions or other changes appreciated. Initial Vital Signs Initial Vital Signs: Vital Signs Temperature 97.8 F 06/13/20 11:04 Pulse Rate 113 H 06/13/20 11:04 Respiratory Rate 24 06/13/20 11:04 Blood Pressure 154/74 H 06/13/20 11:04 Pulse Oximetry 98 06/13/20 11:04 Course Orders Ordered: Discontinued Medications Famotidine (Pepcid) 20 mg in 50 mls @ 200 mls/hr IV NOW ONE Stop: 06/13/20 11:20 Last Infusion: 06/13/20 11:44 Dose: 0 mls/hr Documented by: Admin: 06/13/20 11:09 Dose: 200 mls/hr Documented by: NATTY Sodium Chloride (Normal Saline 0.9%) 1,000 mls @ 1,000 mls/hr IV BOLUS ONE Stop: 06/13/20 12:05 Last Infusion: 06/13/20 12:34 Dose: 0 mls/hr Documented by: Admin: 06/13/20 11:09 Dose: 1,000 mls/hr Documented by: NATTY Methylprednisolone (Methylprednisolone 125 Mg/2 Ml Vial) 125 mg IV NOW ONE Stop: 06/13/20 11:07 Last Admin: 06/13/20 11:09 Dose: 125 mg Documented by: NATTY Reevaluation(s) Reevaluation #1: Patient states she is feeling much better. Still feels a little flushed. Time: 11:39 Reevaluation #2: patient continues to feel improved. Time: 12:46 Vital Signs Vital signs: Vital Signs - 8 hr 06/13/20 12:00 06/13/20 12:30 06/13/20 13:15 Pulse Rate 101 H 100 H 106 H Respiratory Rate 11 L 13 Blood Pressure 143/79 H 132/69 Pulse Oximetry 94 94 92 06/13/20 13:16 06/13/20 13:17 06/13/20 13:21 Pulse Rate 105 H 104 H Respiratory Rate 24 Blood Pressure 156/80 H Pulse Oximetry 95 MDM - Allergic Reaction MDM Narrative Medical decision making narrative: This is a 59-year-old female who arrives after receiving her 2nd dose of Modera now approximately 45 minutes prior to arrival. Patient appears to be having a reaction to the vaccine. She received Benadryl 50 mg p.o. prior to arrival. Solu-Medrol and Pepcid given the department, patient continues to be monitored and continues to improve. Discharge Plan Departure Patient Disposition: Home Clinical Impression: Adverse reaction to vaccine Instructions: DI for Adverse Drug Reaction -- Allergic Activity Restrictions/Additional Instructions: Follow up in the next 2-3 days for recheck Take steroids once daily until gone. Continue Pepcid daily until gone. I would recommend for further vaccines in the future this to discuss with your physician as it appears you did have a reaction today to the moderna vaccine. Return to the ER for new or worsening symptoms, swelling the mouth, neck, or airway, rash, hives, new chest pain, shortness of breath, lightheadedness or passing out, persistent vomiting, diarrhea or any other new or concerning symptoms. Prescriptions: New prednisone 50 mg tablet 50 mg PO DAILY Qty: 5 RF: 0 famotidine [Pepcid] 40 mg tablet 40 mg PO DAILY Qty: 7 RF: 0 epinephrine [EpiPen] 0.3 mg/0.3 mL auto-injector 0.3 ml IM Q5-15M PRN (Reason: anaphylaxis) Qty: 2 RF: 0 No Action gabapentin [Neurontin] 600 MG tablet 600 mg PO QHS Qty: 0 RF: 0 ibuprofen 200 MG capsule 200 mg PO PRN PRNQty: 0 RF: 0 cyclobenzaprine 10 MG tablet 20 mg PO HS Qty: 0 RF: 0 cholecalciferol (vitamin D3) [Vitamin D3] 2,000 UNIT tablet 2 tab PO QDAY Qty: 0 RF: 0 lorazepam [Ativan] 1 MG tablet 1 mg PO BIDP PRNQty: 60 RF: 0 fluoxetine [Prozac] 40 MG capsule 40 mg PO QDAY Qty: 30 RF: 0 azithromycin [Zithromax] 250 MG tablet 250 mg OR QDAY Qty: 6 RF: 0 prednisone 20 MG tablet 20 mg PO BID Qty: 10 RF: 0 Referrals: Lidia Dominguez PA-C [Primary Care Provider] -
[2020-06-13] MEDS: FAMOTIDINE 20 MG/50 ML PIGGYBACK 200 MG IV (11:09)
[2020-06-13] MEDS: methylPREDNISolone 125 MG/2 ML VIAL IV (11:09)
[2020-06-13] MEDS: SODIUM CHLORIDE 0.9% 1,000 ML 1000 ML IV (11:09)
--- NOTE | 2020-06-13 11:21 | PC.NURSE ---
Patient reports warmth starting in her ears almost immediately after vaccine. Stood up felt sea legs SOB. Flushing in face has spread to chest, slight warmth noted to just below the knees. Upon arrival pursed lip breathing, speaking in 5-6 word sentences before stopping for breath. Patient denies tightness in throat. Eyes slightly swollen and flushed. 1125 Patient states breathing feels much better, no longer SOB. Flushed burning sensation remains.
== END 2020-06-13 14:00 | disposition home or self-care (01) ==
PROVIDERS: Emergency Provider Emergency Medicine; PCP Physician Assistant
DX: R42 Dizziness and giddiness (principal); R21 Rash and other nonspecific skin eruption; T50.Z95A Adverse effect of other vaccines and biological substances, initial encounter
CPT/HCPCS: 36415; 96361; 96365; 96375; 99281; 99284; J2930

== ENCOUNTER → 2020-07-29 11:31 | Outpatient (CLI) | payer OTHER, SELFPAY ==
[2020-07-29 13:12] LABS: COVID19 -Nasal RAPID Negative (Negative)
== END ==
PROVIDERS: PCP Physician Assistant; Visit Provider Nurse Practitioner
DX: Z20.822 Contact with and (suspected) exposure to COVID-19 (principal)
CPT/HCPCS: 87635

== ENCOUNTER → 2020-09-04 07:26 | Outpatient (CLI) | payer OTHER, SELFPAY ==
[2020-09-04 08:09] LABS: Add Manual Diff / Slide Review NO; Basophils Absolute Auto 0 /uL (0-100); Eosinophils Absolute Auto 0 /uL (0-450); Hematocrit 43.4 % (36-46); Hemoglobin 14.2 g/dL (12.0-16.0); Lymphocytes Absolute Auto 600 /uL (1100-4500); Lymphocytes Percent Auto 7.6 % (25-40); Mean Corpuscular HGB Conc 32.8 % (30-36); Mean Corpuscular Hemoglobin 27.9 PG (26-34); Mean Corpuscular Volume 84.9 fL (80-100); Monocytes Absolute Auto 200 /uL (0-900); Monocytes Percent Auto 2.5 % (3-14); Neutrophils Absolute Auto 6700 /uL (1500-7000); Neutrophils Percent Auto 89.9 % (50-75); Platelet Count 299 X10^3/uL (150-400); Red Blood Cell Count 5.11 X10^6/uL (4.0-5.2); White Blood Cell Count 7.5 X10^3/uL (4.5-11.0)
[2020-09-04 08:24] LABS: Alanine Aminotransferase 41 IU/L (<35); Albumin 4.3 g/dL (3.5-5.0); Albumin Globulin Ratio 1.4 (1.0-2.8); Alkaline Phosphatase 108 U/L (38-126); Aspartate Aminotransferase 36 IU/L (14-36); BUN Creatinine Ratio 22.2 (6-22); Bilirubin Total 0.5 mg/dL (0.2-1.3); Blood Urea Nitrogen 12 mg/dL (7-17); Carbon Dioxide 26 mmol/L (22-32); Chloride 98 mmol/L (98-107); Cholesterol 181 mg/dL (140-199); Estimated Glomerular Filt Rate > 60.0 mL/min (>60); Globulin 3.1 g/dL (1.7-4.1); Glucose 132 mg/dL (70-100); HDL Cholesterol 64 mg/dL (40-60); HEMOLYSIS < 15 (0-50); LDL Cholesterol Calculated 97 mg/dL (<100); Magnesium 2.1 mg/dL (1.6-2.3); Phosphorous 3.3 mg/dL (2.5-4.5); Potassium 3.8 mmol/L (3.4-5.1); Sodium 138 mmol/L (137-145); Total Protein 7.4 g/dL (6.3-8.2); Triglycerides 98 mg/dL (35-150)
[2020-09-04 08:41] LABS: Vitamin D 25 Hydroxy (D3) 37.8 ng/mL (30.0-100.0)
[2020-09-04 09:01] LABS: Ferritin 233 ng/mL (11-264)
[2020-09-04 09:30] LABS: Folate 6.8 ng/mL (2.76-20.0); Vitamin B12 > 1000 pg/mL (239-931)
[2020-09-04 14:16] LABS: Iron 48 ug/dL (37-170)
[2020-09-04 14:25] LABS: Percent Iron Saturation 21 % (15-50); Total Iron Binding Capacity 228 ug/dL (265-497)
[2020-09-08 01:01] LABS: Vitamin B1 70.5 nmol/L (66.5-200.0)
== END ==
PROVIDERS: PCP Physician Assistant; Referring Provider Surgery; Visit Provider Surgery
DX: E63.9 Nutritional deficiency, unspecified (principal); E66.01 Morbid (severe) obesity due to excess calories; Z98.84 Bariatric surgery status
CPT/HCPCS: 36415; 80053; 80061; 82306; 82607; 82728; 82746; 83540; 83550; 83735; 84100; 84425; 85025

== ENCOUNTER → 2021-03-18 12:19 | Outpatient (CLI) | payer OTHER, SELFPAY | PROVIDERS: PCP Physician Assistant; Referring Provider Internal Medicine; Visit Provider Internal Medicine | DX: Z23 Encounter for immunization (principal) | CPT/HCPCS: 90471; 90686 ==

== ENCOUNTER → 2021-03-29 10:22 | Outpatient (CLI) | payer OTHER, SELFPAY ==
[2021-03-29] MEDS: COVID-19 VACC #3, MRNA(MOD) 50 MCG/0.25 ML VIAL IM (10:28)
== END ==
PROVIDERS: PCP Physician Assistant; Visit Provider Internal Medicine
DX: Z23 Encounter for immunization (principal)
CPT/HCPCS: 0013A; 91301